=== PATIENT | male | born 1990 | race Caucasian/White ===

== ENCOUNTER → 2016-10-03 | Outpatient (CLI) | payer OTHER | END | disposition home or self-care (01) | LOC: C.LAB 02:51 | DX: Z02.83 Encounter for blood-alcohol and blood-drug test (principal) ==

== ENCOUNTER → 2016-11-17 | Outpatient (CLI) | payer OTHER ==
--- NOTE | 2016-11-17 07:44 | DIAGNOSTIC IMAGING REPORT ---
MRI LEFT KNEE NO CONTRAST CLINICAL HISTORY: Left knee pain status post trauma. History of prior ACL repair. COMPARISON STUDY: No previous studies for comparison. FINDINGS: Imaging was performed in the sagittal coronal and axial planes. There is a small suprapatellar joint effusion. The quadriceps and patellar tendons appear intact. There are postsurgical changes of an ACL graft. The graft appears intact. Posterior cruciate ligament appears intact. The medial and lateral menisci appear intact. There is a small cartilaginous defect involving the anterior femoral cartilage. There is also moderate chondrosis involving the lateral femoral condyle with subchondral marrow edema. The medial and lateral collateral ligaments appear intact. IMPRESSION: 1. 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 There is also a cartilaginous defect involving the anterior femoral cartilage in the midline 2. The patient's anterior cruciate ligament graft appears intact. The PCL appears intact. 3. No meniscal tears identified. The collateral ligaments appear intact. 4. Small joint effusion Electronically signed by: Luis Antonio Dotson M.D. 11/17/2016 7:43 AM Dictated Date/Time: 11/17/2016 7:38 AM
== END | disposition home or self-care (01) ==
LOC: C.MRIBC 06:37
PROVIDERS: ATTEND Orthopaedic Surgery
DX: M25.562 Pain in left knee (principal); M94.8X8 Other specified disorders of cartilage, other site; M25.462 Effusion, left knee